=== PATIENT | female | born 1990 | race Caucasian/White ===

== ENCOUNTER 2019-01-29 08:33 | Emergency (ER) | payer OTHER ==
[2019-01-29] MEDS: KETOROLAC 60 MG INJ IM (09:36)
[2019-01-29] MEDS: DEXAMETHASONE 10 MG/ML 1 ML INJ IM (09:36)
[2019-01-29] MEDS: ACETAMINOPHEN 500 MG TAB PO (09:36)
[2019-01-29] MEDS: PENICILLIN G BENZ 1.2 MIL UNIT SYG IM (10:34)
[2019-01-29 10:46] LABS: MONOTEST Negative (NEG)
== END 2019-01-29 11:04 | disposition home or self-care (01) ==
LOC: FTE 08:33
DX: J02.0 Streptococcal pharyngitis (principal)
CPT/HCPCS: 81025; 86308; 87880; 96372; 99284-25